=== PATIENT | female | born 1975 | race Hispanic/Latino ===

== ENCOUNTER 2021-08-05 17:45 | Emergency (ER) | payer SELFPAY ==
--- NOTE | 2021-08-05 19:42 | EDPHYS ---
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 Flu vaccine is not up to date. - Social history:: Smoking status: Patient denies any tobacco usage or history of. Exam: 18:11 ECG was reviewed by the Attending Physician. kdr Vital Signs: 17:55 BP 153 / 98; Pulse 104; Resp 18; Temp 97.4(TE); Pulse Ox 99% on R/A; Weight 97.98 kg tw2 (R); Height 5 ft. 1 in. (154.94 cm); Pain 7/10; 17:55 Body Mass Index 40.81 (97.98 kg, 154.94 cm) tw2 EC:11 Rate is 98 beats/min. Rhythm is regular, Sinus Rhythm with No ectopy. QRS [place] is kdr Normal. OK interval is normal. QRS interval is normal. QT interval is normal. Clinical impression: NSR w/ Non-specific ST/T Changes. Administered Medications: No medications were administered Disposition Summary: 08/05/21 19:41 Eloped Disposition: after being seen by provider ld1 Reason: unknown ld1 Signatures: Puma Wu MD MD kdr Nieto, Roman, MD MD rn Wise, Tara, RN RN tw2 Saskia Plummer RN RN ld1 Corrections: (The following items were deleted from the chart) 19:25 19:23 Patient medically screened. rn rn
--- NOTE | 2021-08-05 19:42 | ER ---
Nurse's Notes [facility] Name: Maria Guadalupe Saenz Age: 45 yrs Sex: Female : 1975 Arrival Date: 08/05/2021 Time: 17:48 Bed Waiting Private MD: Diagnosis: Presentation: 08/05 17:55 Chief complaint: Patient states: i started having chest pain a couple of days ago. i tw2 feel like pressure. it starts on the right side of my chest and radiates through to the back. nauseous. and i feel shortness of breath. i am having stomach pain. Coronavirus screen: chills, nausea. Ebola Screen: Patient denies travel to an Ebola-affected area in the 21 days before illness onset. Initial Sepsis Screen: Does the patient meet any 2 criteria? No. Patient's initial sepsis screen is negative. Does the patient have a suspected source of infection? No. Patient's initial sepsis screen is negative. Risk Assessment: Do you want to hurt yourself or someone else? Patient reports no desire to harm self or others. Onset of symptoms was August 05, 2021. 17:55 Method Of Arrival: Ambulatory tw2 17:55 Acuity: RONALD 3 tw2 Triage Assessment: 17:57 General: Appears in no apparent distress. uncomfortable, obese, well groomed, Behavior tw2 is calm, cooperative, appropriate for age. Pain: Complains of pain in chest Pain radiates to back. Cardiovascular: Reports chest pain, shortness of breath. GI: Reports nausea. 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 Flu vaccine is not up to date. - Social history:: Smoking status: Patient denies any tobacco usage or history of. Vital Signs: 17:55 BP 153 / 98; Pulse 104; Resp 18; Temp 97.4(TE); Pulse Ox 99% on R/A; Weight 97.98 kg tw2 (R); Height 5 ft. 1 in. (154.94 cm); Pain 7/10; 17:55 Body Mass Index 40.81 (97.98 kg, 154.94 cm) tw2 ED Course: 17:48 Patient arrived in ED. mr 17:56 Triage completed. tw2 17:57 Arm band placed on. tw2 18:03 EKG completed in triage. Results shown to MD. tw2 18:03 Patient maintains SpO2 saturation greater than 95% on room air. tw2 19:23 Nikita Champagne MD is Attending Physician. rn 19:26 Patient's name was called from ER lobby. No response. ld1 Administered Medications: No medications were administered Outcome: 19:41 Patient left the ED. ld1 Signatures: Vero Long mr Nikita Champagne MD MD rn Wise, Tara, RN RN tw2 Saskia Plummer RN RN ld1
[2021-08-05 20:00] VITALS: BP 153/98; TEMP 97.4; O2SAT 99
== END 2021-08-05 19:41 | disposition left against medical advice (07) ==
LOC: ER 17:45
DX: R07.9 Chest pain, unspecified (principal); E11.9 Type 2 diabetes mellitus without complications
CPT/HCPCS: 93005; 99283